=== PATIENT | female | born 1950 | race Caucasian/White ===

== ENCOUNTER 2022-01-09 11:24 | Day surgery (SDC) | payer MEDICARE, SELFPAY ==
[2022-01-03 10:30] VITALS: BMI 32.5
--- NOTE | 2022-01-08 10:28 | HO.ANESPROP2 ---
Documented by User: Alba Rivas NP 01/08/22 10:31 HPI - Anesthesia Eval Consult details Narrative: 71yo F for Right Eye Muscle Lateral and Medial Recession/Resection PCP cleared [facility] Past Medical History Medical History Asthma COVID-19 vaccine series completed Degenerative disc disease, cervical Elevated cholesterol HTN (hypertension) Malignant neoplasm of right upper lobe of lung Surgical History Surgical History H/O colonoscopy History of ankle surgery History of bunionectomy History of lobectomy of lung History of tonsillectomy and adenoidectomy Hx of bladder repair surgery Hx of eye surgery Hx of hysterectomy Social History Social History (Updated 01/03/22 @ 10:29 by Emily Ken RN) Household Members: Spouse Patient Tobacco Use Status: Former Tobacco user Quit Date: 1975 Tobacco use type: Cigarette Use of substances other than those prescribed or required for medical reasons: No Are you DNR?: No Advance Directives: No Advance Directives Information Provided: Yes Meds Allergies Allergy/AdvReac Type Severity Reaction Status Date / Time codeine AdvReac Intermediate Gastrointestinal Verified 01/03/22 10:29 Upset Home Medications Medication Instructions Recorded Confirmed Last Taken Type albuterol sulfate 90 mcg/actuation 2 puff inhalation Q4-6H PRN 01/03/22 01/09/22 Unknown History aerosol inhaler (Ventolin HFA) Shortness Of Breath atorvastatin 40 mg tablet 40 mg PO BEDTIME 01/03/22 01/09/22 Unknown History calcium carbonate 600 mg calcium 600 mg PO DAILY 01/03/22 01/09/22 Unknown History (1,500 mg) tablet (Calcium) cholecalciferol (vitamin D3) 50 50 mcg PO DAILY 01/03/22 01/09/22 Unknown History mcg (2,000 unit) capsule (Vitamin D3) lisinopril 20 1 tab PO DAILY 01/03/22 01/09/22 Unknown History mg-hydrochlorothiazide 12.5 mg tablet oxycodone 5 mg tablet 5 mg PO BEDTIME PRN Pain 01/03/22 01/09/22 Unknown History amlodipine 10 mg tablet 1 tab PO DAILY 01/09/22 01/09/22 01/09/22 History Exam Exam Date and Time: January 08, 2022 1028 Height,Weight and Vital Signs: Height 5 ft 6 in Weight 91.444 kg Assessment and Plan Assessment Anesthesia Assessment: Chart Reviewed Documented by User: Apple Hemphill MD 01/09/22 15:41 PMFSH Active Problems Active Problems: Asthma- very rarely uses inhaler. Not used recently Past Medical History Medical History Asthma COVID-19 vaccine series completed Degenerative disc disease, cervical Elevated cholesterol HTN (hypertension) Malignant neoplasm of right upper lobe of lung Family History Family history of problems with anesthesia: No Surgical History Surgical History H/O colonoscopy History of ankle surgery History of bunionectomy History of lobectomy of lung History of tonsillectomy and adenoidectomy Hx of bladder repair surgery Hx of eye surgery Hx of hysterectomy History of Problems with Anesthesia: No Social History Social History (Updated 01/03/22 @ 10:29 by Emily Ken RN) Household Members: Spouse Patient Tobacco Use Status: Former Tobacco user Quit Date: 1975 Tobacco use type: Cigarette Use of substances other than those prescribed or required for medical reasons: No Are you DNR?: No Advance Directives: No Advance Directives Information Provided: Yes Meds Allergies Allergy/AdvReac Type Severity Reaction Status Date / Time codeine AdvReac Intermediate Gastrointestinal Verified 01/03/22 10:29 Upset Home Medications Medication Instructions Recorded Confirmed Last Taken Type albuterol sulfate 90 mcg/actuation 2 puff inhalation Q4-6H PRN 01/03/22 01/09/22 Unknown History aerosol inhaler (Ventolin HFA) Shortness Of Breath atorvastatin 40 mg tablet 40 mg PO BEDTIME 01/03/22 01/09/22 Unknown History calcium carbonate 600 mg calcium 600 mg PO DAILY 01/03/22 01/09/22 Unknown History (1,500 mg) tablet (Calcium) cholecalciferol (vitamin D3) 50 50 mcg PO DAILY 01/03/22 01/09/22 Unknown History mcg (2,000 unit) capsule (Vitamin D3) lisinopril 20 1 tab PO DAILY 01/03/22 01/09/22 Unknown History mg-hydrochlorothiazide 12.5 mg tablet oxycodone 5 mg tablet 5 mg PO BEDTIME PRN Pain 01/03/22 01/09/22 Unknown History amlodipine 10 mg tablet 1 tab PO DAILY 01/09/22 01/09/22 01/09/22 History Exam Height,Weight and Vital Signs: Height 5 ft 6 in Weight 91.444 kg Vital Signs Pulse Resp 01/09/22 13:57 72 16 Airway Mallampati Class: II (Very narrow high arched palate) TM Dist: >3cm Neck ROM: Full Denture: Upper and Lower Heart: RRR Lungs: CTAB Assessment and Plan Assessment Anesthesia Assessment: Anesthesia Plan Discussed Final Anesthetic Review Family History of Problems with Anesthesia: No History of Problems with Anesthesia: No NPO: Yes ASA Class: III Final Preanesthetic Review: No Changes in Pt Med Stat, Meds/Allgs Chart Reviewed and Consent Obtained/Reviewed Patient Risk: Intermediate Procedure Risk: Low Assessment/Block/Sedation in SS: Assess/Block/Sedation-SS Anesthetic Plan Anesthetic Plan: GA Disposition: Standard PACU
[2022-01-09] VITALS (8 sets, daily range): BP systolic 156–177; BP diastolic 63–79; PULSE 72–89; RESP 16–20; TEMP 36.1–36.4; O2SAT 95–99; BMI 28.8
[2022-01-09] MEDS: Lactated Ringers 1,000 ML 100 ML IVCONT (13:43)
[2022-01-09] MEDS: Albuterol Sulfate (0.083%) 2.5 MG/3 ML VIAL.NEB INHALE (13:53)
--- NOTE | 2022-01-09 15:49 | HO.OPHTHAL ---
Ophthalmology Operative Note Date of Service: 01/09/22 Narrative: Preoperative diagnosis exotropia. Procedures 1. Recession of right lateral rectus muscle 6 mm 2. Resection right medial rectus muscle [address] Lester anesthesia general complications none. The patient was brought to the operating room placed under general anesthesia. The patient's right eye was prepped and draped in the usual sterile ophthalmic fashion. A limbal peritomy was created around the right lateral rectus muscle and the muscle was hooked and secured with a double-armed Vicryl suture. The muscle was then disinserted from the globe and reattached to a position 6 mm behind the original insertion. Conjunctiva was closed with interrupted Vicryl sutures. A peritomy was then created around the medial rectus muscle. The muscle was placed on a Michael muscle clamp and the overlying fascial attachments dissected free. A 5 mm resection was marked off with cautery and the resection point secured with a double-armed Vicryl suture. The distal muscle was resected and the resection point drawn forward to the insertion using the Vicryl suture. Conjunctiva was closed with interrupted Vicryl sutures. The patient was then awoken from general anesthesia and discharged to postoperative recovery in good condition.
[2022-01-09] MEDS: Tetracaine HCl/PF 0.5% Oph Sol 4 ML DROPS 1 DROP EYE-RIGHT ×2 (16:06→16:49)
[2022-01-09] MEDS: Acetaminophen 325 MG TABLET 650 MG PO (16:35)
[2022-01-09] MEDS: oxyCODONE HCl Immed Release 5 MG TABLET PO (16:47)
== END 2022-01-09 17:08 | disposition home or self-care (01) ==
PROVIDERS: PCP Internal Medicine; Visit Provider Ophthalmology
PROC: (CPT 67312; principal; 2022-01-09 13:00)
DX: H50.111 Monocular exotropia, right eye (principal); I10 Essential (primary) hypertension; E78.5 Hyperlipidemia, unspecified; J45.909 Unspecified asthma, uncomplicated; E66.9 Obesity, unspecified; Z68.30 Body mass index [BMI] 30.0-30.9, adult; Z79.899 Other long term (current) drug therapy; Z88.8 Allergy status to other drugs, medicaments and biological substances; Z85.118 Personal history of other malignant neoplasm of bronchus and lung; Z92.21 Personal history of antineoplastic chemotherapy; Z87.891 Personal history of nicotine dependence
CPT/HCPCS: 67312; 94640; J1100; J1885; J2405